=== PATIENT | female | born 1960 | race Two or more races ===

== ENCOUNTER 2022-04-16 23:11 | Emergency (ER) | payer OTHER ==
[~2022-04-16] VITALS: Ht 149.9 cm; Wt 66.2 kg
[~2022-04-16 23:11] MED LIST: FEROSUL325 ( 65 ) PO; PROTONIX40 MG PO; TYLENOL-CODEINE1 TAB PO
[2022-04-17] MEDS ORDERED: ROSUVASTATIN CAL5 MG PO
[2022-04-17] MEDS ORDERED: METOPROLOL SUCC25 MG PO
[2022-04-17] MEDS ORDERED: ESZOPICLONE1 MG PO
[2022-04-17] MEDS ORDERED: LOSARTAN POTASS25 MG PO
[2022-04-17] MEDS ORDERED: KETO10TA2 PO (06:14)
[2022-04-17] MEDS ORDERED: CEPHALEXIN500 MG PO (06:14)
== END 2022-04-17 06:23 ==
LOC: ER 23:11
DX: N20.2 Calculus of kidney with calculus of ureter (principal); I10 Essential (primary) hypertension; Z87.442 Personal history of urinary calculi